=== PATIENT | female | born 1980 | race Two or more races ===

== ENCOUNTER 2018-03-30 10:39 | Outpatient (CLI) | payer MEDICAID ==
[2018-03-30 11:32] LABS: BASOPHILS % (AUTO) 0.2 %; EOSINOPHILS # (AUTO) 0.1 10^3/uL (0.0-0.7); EOSINOPHILS % (AUTO) 1.4 %; HGB - HEMOGLOBIN 11.4 g/dL (12.0-16.0); LYMPHOCYTES # (AUTO) 2.1 10^3/uL (1.5-3.5); LYMPHOCYTES % (AUTO) 26.4 %; MEAN CORPUSCULAR HEMOGLOBIN 29.5 pg (27.0-31.0); MEAN CORPUSCULAR HGB CONC 34.1 g/dL (32.0-36.0); MEAN CORPUSCULAR VOLUME 86.6 fL (81.0-99.0); MEAN PLATELET VOLUME 8.6 fL (7.9-10.8); MONOCYTES # (AUTO) 0.5 10^3/uL (0.0-1.0); MONOCYTES % (AUTO) 6.2 %; NEUTROPHILS # (AUTO) 5.1 10^3/uL (1.5-6.6); NEUTROPHILS % (AUTO) 65.8 %; PLT - PLATELET COUNT 297 10^3/uL (130-450); RED BLOOD COUNT 3.87 10^6/uL (4.20-5.40); RED CELL DISTRIBUTION WIDTH 13.7 % (12.0-15.0); WHITE BLOOD COUNT 7.8 x10^3/uL (4.8-10.8)
[2018-03-30 11:43] LABS: BILIRUBIN,URINE NEGATIVE (NEGATIVE); GLUCOSE, URINE (UA) NEGATIVE (NEGATIVE); KETONES,URINE (UA) NEGATIVE (NEGATIVE); LEUKOCYTE ESTERASE, URINE NEGATIVE (NEGATIVE); NITRITE,URINE NEGATIVE (NEGATIVE); OCCULT BLOOD,URINE TRACE-INTA (NEGATIVE); PH,URINE 6.5 PH (5.0-7.5); PROTEIN,URINE NEGATIVE (NEGATIVE); UROBILINOGEN,URINE 0.2 (NORMAL) E.U./dL (NORMAL)
[2018-03-30 11:45] LABS: CLARITY,URINE CLEAR (CLEAR)
[2018-03-30 12:14] LABS: BACTERIA,URINE Rare /HPF (None Seen); RBC,URINE 0-5 /HPF (0-5); SQUAMOUS EPITHELIAL CELL,UR RARE Squamous (<= Few)
[2018-03-31 11:36] LABS: HEPATITIS B SURFACE ANTIGEN NON-REACTIVE (NON-REACTIVE); HEPATITIS C ANTIBODY NON-REACTIVE (NON-REACTIVE)
[2018-03-31 16:22] LABS: HIV AG/AB 4TH GEN NON-REACTIVE (NON-REACTIVE)
== END 2018-03-30 10:40 | disposition home or self-care (01) ==
LOC: LAB 10:39
PROVIDERS: ATTEND Obstetrics & Gynecology
DX: Z36.9 Encounter for antenatal screening, unspecified (principal); O09.511 Supervision of elderly primigravida, first trimester
CPT/HCPCS: 36415; 81001; 81599; 85025; 86592; 86762; 86803; 86850; 86900; 86901; 87340; 87389

== ENCOUNTER 2018-04-11 15:36 | Outpatient (CLI) | payer MEDICAID | END 2018-04-11 15:37 | disposition home or self-care (01) | LOC: LAB 15:36 | PROVIDERS: ATTEND Obstetrics & Gynecology | DX: Z13.79 Encounter for other screening for genetic and chromosomal anomalies (principal) | CPT/HCPCS: 36415; 81599; 82105; 82677; 84702; 86336 ==

== ENCOUNTER 2018-04-22 08:14 | Outpatient (CLI) | payer MEDICAID ==
--- NOTE | 2018-04-24 09:20 | Ultrasound Report ---
Reason: ENCTR FOR SCREENING, UNSPECIFIED Procedure Date: 04/22/2018 Accession Number: [id number] Procedure: US - OB First Trimester CPT Code: FULL RESULT: EXAM: LIMITED OBSTETRICAL ULTRASOUND, EARLY EXAM DATE: 04/22/2018 09:27 AM. CLINICAL HISTORY: Encounter for screening, unspecified. LMP: 12/24/2017. COMPARISONS: None. TECHNIQUE: Transabdominal ultrasound examination with multiple sales representative printing static image documentation. CLINICAL DATES: EGA 17 weeks 0 days with JOEL 09/30/2018 based on last menstrual period. ASSESSMENT: Normal movement of a live single intrauterine gestation in variable presentation. Cardiac activity: 146 beats per minute. Amniotic fluid: MVP 2.63 cm, subjectively normal. Early placenta: The placenta is posterior, no evidence of previa. Other: No perigestational fluid collection demonstrated. MATERNAL STRUCTURES: Uterus: Anteverted. Unremarkable. Cervix: Closed, 4.9 cm. The adnexa are not well seen. Free Fluid: None. BIOMETRY Bi-Parietal Diameter (BPD): 3.5 cm, 16 weeks 5 days Head Circumference (HC): 13 cm, 16 weeks 4 days Abdominal Circumference (AC): 11.6 cm, 17 weeks 2 days Femur Length (FL): 2.1 cm, 16 weeks 2 days Estimated Weight: 173 g, which corresponds to the 50th percentile of a 16 week 5 day . ANATOMY Within the limits of early second trimester ultrasound, no anatomic abnormality is detected. The profile/nasal bone, visualized intracranial structures, nuchal region, anterior abdominal wall, cord insert region, stomach, and bladder are visualized and appear normal for gestational age. Cardiac situs is normal. Both upper and lower extremities are visualized. IMPRESSION: 1. Single viable intrauterine at EGA 16 weeks 5 days with JOEL 10/02/2018 based on estimated weight by [place], which is concordant with clinical dates. 2. Assigned dating is JOEL 16 weeks 5 days based on current ultrasound. RADIA
== END 2018-04-22 08:15 | disposition home or self-care (01) ==
LOC: DI 08:14
PROVIDERS: ATTEND Obstetrics & Gynecology
DX: Z36.9 Encounter for antenatal screening, unspecified (principal); Z3A.16 16 weeks gestation of pregnancy
CPT/HCPCS: 76801

== ENCOUNTER 2018-06-02 07:37 | Outpatient (CLI) | payer MEDICAID ==
--- NOTE | 2018-06-02 12:43 | Ultrasound Report ---
Reason: ENCOUNTER FOR SCREENING,UNSPECIFIED Procedure Date: 06/02/2018 Accession Number: [id number] / [id number] Procedure: US - OB Detailed Eval CPT Code: FULL RESULT: EXAM: COMPLETE OBSTETRICAL ULTRASOUND EXAM DATE: 06/02/2018 09:29 AM. CLINICAL HISTORY: anatomic survey. COMPARISON: None. TECHNIQUE: Real-time sonographic evaluation of the fetus performed by the watch and clock maker and repairer. Multiple customer support representative static images were saved for review. Additional transvaginal imaging to more accurately evaluate cervical length/placental position/etc. DATING: Established EGA 22 weeks 5 days with JOEL 09/30 based on first ultrasound. EGA 22 weeks 3 days with JOEL 10/02/2018 based on provider statement. EGA 23 weeks 0 days with JOEL 09/28/2018 based on the current ultrasound. GENERAL EVALUATION Renee . Cardiac activity: 156 bpm. movement: Visualized. Presentation: Variable Placenta: Posterior frontal position. No evidence for previa. Umbilical cord: 3 vessel cord. Central placental cord origin. Amniotic fluid: Subjectively normal. MVP 5.4 cm. ALEXSANDER 14.9 BIOMETRY Bi-Parietal Diameter (BPD): 5.8 cm, 23 weeks 5 days Head Circumference (HC): 20.8 cm, 22 weeks 6 days Abdominal Circumference (AC): 18.3 cm, 23 weeks 0 days Femur Length (FL): 4.0 cm, 22 weeks 5 days Estimated Weight: 554 g, 44th LMP percentile 80 ANATOMY The profile, face/nose/lips, spine, 4 chamber heart and left outflow tract, stomach, abdominal wall and cord insertion, diaphragm, kidneys, bladder, and extremities were visualized and demonstrate no abnormality. Right ventricular outflow tract is not demonstrated on this exam. There is questionable ventriculomegaly. The left ventricle measures up to 1.3 cm. MATERNAL STRUCTURES Uterus: Unremarkable. Cervix: Long and closed. Transabdominal length 4.8 cm. Right ovary/adnexa: Unremarkable. Left ovary/adnexa: Unremarkable. Free fluid: None. IMPRESSION: 1. Renee live intrauterine with gestational age 22 weeks 3 days based on referring provider data. 2. Estimated weight is within expected limits for assigned dating. 3. Right ventricular outflow tract is not evaluated. There is questionable ventriculomegaly with the left ventricle measuring 1.3 cm. Recommend maternal medicine consultation. RADIA
== END 2018-06-02 07:38 | disposition home or self-care (01) ==
LOC: DI 07:37
PROVIDERS: ATTEND Obstetrics & Gynecology
DX: Z36.9 Encounter for antenatal screening, unspecified (principal); Z3A.22 22 weeks gestation of pregnancy
CPT/HCPCS: 76811

== ENCOUNTER 2018-07-11 08:00 | Outpatient (CLI) | payer MEDICAID ==
[2018-07-11 19:04] LABS: HGB - HEMOGLOBIN 11.5 g/dL (12.0-16.0); MEAN CORPUSCULAR HEMOGLOBIN 29.9 pg (27.0-31.0); MEAN CORPUSCULAR HGB CONC 32.6 g/dL (32.0-36.0); MEAN CORPUSCULAR VOLUME 91.8 fL (81.0-99.0); MEAN PLATELET VOLUME 9.8 fL (7.9-10.8); RED BLOOD COUNT 3.83 10^6/uL (4.20-5.40); RED CELL DISTRIBUTION WIDTH 14.1 % (12.0-15.0)
== END 2018-07-11 23:59 | disposition home or self-care (01) ==
LOC: LAB.N 08:00
PROVIDERS: ATTEND Obstetrics & Gynecology
DX: Z36.2 Encounter for other antenatal screening follow-up (principal)
CPT/HCPCS: 36415; 82950; 85027; 86850

== ENCOUNTER 2018-09-19 16:25 | Outpatient (CLI) | payer MEDICAID ==
[2018-09-19 16:58] LABS: ALBUMIN 2.8 g/dL (3.2-5.5); ALBUMIN/GLOBULIN RATIO 0.9 (1.0-2.2); BILIRUBIN,TOTAL 0.2 mg/dL (0.2-1.0); CALCIUM 8.7 mg/dL (8.5-10.3); CREATININE 0.6 mg/dL (0.4-1.0)
[2018-09-19 17:11] LABS: CREATININE,URINE 82.6 mg/dL; PROTEIN/CREATININE RATIO,URINE 0.1 (<=0.2)
[2018-09-22 12:06] LABS: CHENODEOXYCHOLIC ACID <0.5 umol/L (< OR = 3.1); CHOLIC ACID <0.5 umol/L (< OR = 1.8); DEOXYCHOLIC ACID <0.5 umol/L (< OR = 2.4)
== END 2018-09-19 16:26 | disposition home or self-care (01) ==
LOC: LAB 16:25
PROVIDERS: ATTEND Obstetrics & Gynecology
DX: Z33.1 Pregnant state, incidental (principal)
CPT/HCPCS: 36415; 80053; 82542; 82570; 84156

== ENCOUNTER 2018-09-20 16:13 | Outpatient (CLI) | payer MEDICAID | END 2018-09-20 23:59 | disposition home or self-care (01) | LOC: LAB.R 16:13 | PROVIDERS: ATTEND Obstetrics & Gynecology | DX: Z33.1 Pregnant state, incidental (principal) | CPT/HCPCS: 87491; 87591; 87797 ==

== ENCOUNTER 2018-09-25 05:57 | Inpatient (IN) | payer MEDICAID ==
[2018-09-25] MEDS ORDERED: LACTATED RINGERS 1,000 ML IV ONE (06:18)
[2018-09-25] MEDS ORDERED: SODIUM CHLORIDE FLUSH 0.9% 10 ML SYRINGE ONE (06:18)
[2018-09-25] MEDS ORDERED: OXYTOCIN/SODIUM CHLORIDE 500 ML IV ONE (06:25)
[2018-09-25] MEDS ORDERED: SODIUM CHLORIDE FLUSH 0.9% 10 ML SYRINGE IVP PRN (06:26)
[2018-09-25] MEDS: LACTATED RINGERS 1,000 ML IV SCH ×2 (06:33→08:20)
[2018-09-25 06:49] LABS: BASOPHILS % (AUTO) 0.6 %; EOSINOPHILS # (AUTO) 0.1 10^3/uL (0.0-0.7); EOSINOPHILS % (AUTO) 1.5 %; HGB - HEMOGLOBIN 12.4 g/dL (12.0-16.0); LYMPHOCYTES # (AUTO) 2.1 10^3/uL (1.5-3.5); LYMPHOCYTES % (AUTO) 27.1 %; MEAN CORPUSCULAR HEMOGLOBIN 30.4 pg (27.0-31.0); MEAN CORPUSCULAR HGB CONC 34.2 g/dL (32.0-36.0); MEAN PLATELET VOLUME 9.5 fL (7.9-10.8); MONOCYTES # (AUTO) 0.6 10^3/uL (0.0-1.0); MONOCYTES % (AUTO) 7.5 %; NEUTROPHILS # (AUTO) 4.9 10^3/uL (1.5-6.6); NEUTROPHILS % (AUTO) 63.3 %; PLT - PLATELET COUNT 240 10^3/uL (130-450); RED BLOOD COUNT 4.07 10^6/uL (4.20-5.40); RED CELL DISTRIBUTION WIDTH 14.5 % (12.0-15.0); WHITE BLOOD COUNT 7.7 x10^3/uL (4.8-10.8)
--- NOTE | 2018-09-25 07:11 | HISTORY & PHYSICAL EXAMINATION ---
Chief Complaint - Chief Complaint Chief Complaint: contractions History of Present Illness - History of Present Illness HPI Comment/Other: Contractions since last hs. Strong and regular. Scant VB. No LOF. Good FM ROS: no URI sx, not feeling ill PMH: jpsoriasis PSH: neg Allergies: NKDA Meds: PNV SH: no t/e/d OB: , last 14y ago, prior 2 births were uncomplicated G3: JOEL 09/30/18 by LMP c/w 11w US. Advanced maternal age normal NIPT and quad screen. O: AVSS Alert, smiling between UC, NAD Abd soft, nt/nd EFW 7.25# grace Vertex grace SVE by RN 7cm vertex Category 1 NST Dooms 2 UC/10min A/P: 38yo at 39w3d with active spontaneous labor, vertex, GBS neg, EFW 7.24#, cat 1 NST --Anticipate --Epidural per pt request --: Rh +, rubella immune. Will ask about Tdap, flu vax, and varicella status. NEEDS COLPO PP Conclusion/Plan - Lab Results Fish Bones: 09/25/18 06:35
[2018-09-25] MEDS ORDERED: fent/BUPIV 2 MCG/0.125% 250 ML EP ONE (07:20)
[2018-09-25] MEDS ORDERED: fent/BUPIV 2 MCG/0.125% 250 ML EP PRN (08:14)
[2018-09-25] MEDS ORDERED: NALBUPHINE 10 MG/ML AMP IVP PRN (08:14)
[2018-09-25] MEDS ORDERED: diphenhydrAMINE INJ 50 MG/ML VIAL IVP PRN (08:14)
[2018-09-25] MEDS ORDERED: ePHEDrine 50 MG/ML VIAL IVP PRN (08:14)
[2018-09-25] MEDS ORDERED: NALOXONE 0.4 MG/ML VIAL IVP PRN (08:14)
[2018-09-25] MEDS ORDERED: LACTATED RINGERS 500 ML IV ONE (08:14)
[2018-09-25] MEDS ORDERED: METOCLOPRAMIDE 10 MG/2 ML VIAL IVP PRN (08:14)
[2018-09-25] MEDS ORDERED: ONDANSETRON 4 MG/2 ML VIAL IVP PRN (08:14)
--- NOTE | 2018-09-25 08:17 | PROVIDER PROGRESS NOTE ---
Subjective - Subjective Subjective: Feeling better with epidural but still having painful contractions Variable now minimal post epidural but no decels. AROM for clear fluid after pt consent. Had some LOF earlier during admission but had a large taut forebag. Clear and copious. 9/100/-2 Anticipate . Watch NST to ensure moderate LTV soon as hemodynamics adjust to epidural. Objective - Lab Results Fish Bones: 09/25/18 06:35 Other Labs: Lab Results x24hrs 09/25/18 Range/Units 06:35 WBC 7.7 (4.8-10.8) x10^3/uL RBC 4.07 L (4.20-5.40) 10^6/uL Hgb 12.4 (12.0-16.0) g/dL Hct 36.2 L (37.0-47.0) % MCV 89.0 (81.0-99.0) fL MCH 30.4 (27.0-31.0) pg MCHC 34.2 (32.0-36.0) g/dL RDW 14.5 (12.0-15.0) % Plt Count 240 (130-450) 10^3/uL MPV 9.5 (7.9-10.8) fL Neut # (Auto) 4.9 (1.5-6.6) 10^3/uL Lymph # (Auto) 2.1 (1.5-3.5) 10^3/uL [place] # (Auto) 0.6 (0.0-1.0) 10^3/uL Eos # (Auto) 0.1 (0.0-0.7) 10^3/uL Baso # (Auto) 0.0 (0.0-0.1) 10^3/uL Absolute Nucleated RBC 0.00 x10^3/uL Nucleated RBC % 0.1 /100WBC
--- NOTE | 2018-09-25 08:19 | ANESTHESIA ---
Pre-Anesthesia VS, & Labs - Diagnosis active labor - Procedure labor epidural - NPO Other (clears from now until delivery) - Is Patient ?: Yes - Lab Results Current Lab Results: Laboratory Tests 09/25/18 06:35: WBC 7.7, RBC 4.07 L, Hgb 12.4, Hct 36.2 L, MCV 89.0, MCH 30.4, MCHC 34.2, RDW 14.5, Plt Count 240, MPV 9.5, Neut # (Auto) 4.9, Lymph # (Auto) 2.1, Door # (Auto) 0.6, Eos # (Auto) 0.1, Baso # (Auto) 0.0, Absolute Nucleated RBC 0.00, Nucleated RBC % 0.1 Fish Bones: 09/25/18 06:35 Home Medications and Allergies Active Medications Diphenhydramine HCl (Benadryl Inj) 12.5 - 25 mg IVP Q6HR PRN PRN Reason: ITCHING Ephedrine Sulfate () 5 mg IVP Q5M PRN PRN Reason: For SBP<100;give until SBP>100 Lactated Ringer's (Lr) 1,000 mls @ 150 mls/hr IV .Q6H40M CELSO Last Admin: 09/25/18 06:33 Dose: 999 mls/hr Fentanyl/Bupivacaine/Sodium Chlor (Fent/Bupiv 2 Mcg/0.125%) 250 mls @ 0 mls/hr EP .Q0M PRN; Protocol PRN Reason: PAIN Lactated Ringer's (Lr) 500 mls @ 999 mls/hr IV ONCE ONE Stop: 09/25/18 08:44 Metoclopramide HCl (Reglan Inj) 10 mg IVP Q6HR PRN PRN Reason: Nausea / Vomiting Nalbuphine HCl (Nubain) 2.5 - 5 mg IVP Q4H PRN PRN Reason: ITCHING Naloxone HCl (Narcan) 0.1 mg IVP Q2M PRN PRN Reason: RR<8 Ondansetron HCl (Zofran Inj) 4 mg IVP Q6HR PRN PRN Reason: Nausea / Vomiting Sodium Chloride (Normal Saline Flush 0.9%) 10 ml IVP PRN PRN PRN Reason: NEEDED PER PROVIDER ORDERS Sodium Chloride (Normal Saline Flush 0.9%) 10 ml IVP 0100,0900,1700 CELSO Anes History & Medical History - Anesthetic History Anesthesia Complications: reports: No previous complications - Obstetrical History : 3 Parity: 2 Exam General: Alert Dental: WNL Mallampati classification: II Thyromental Distance: 4-6 cm Plan Anesthesia Type: Epidural Consent for Procedure(s) Verified and Reviewed: Yes Code Status: Attempt Resuscitation ASA classification: 2-Mild systemic disease Is this case an emergency?: No
[2018-09-25] MEDS ORDERED: SODIUM CHLORIDE FLUSH 0.9% 10 ML SYRINGE IVP SCH (09:00)
[2018-09-25] MEDS ORDERED: MAGNESIUM HYDROXIDE 2,400 MG/30 ML UDC PO PRN (12:14)
[2018-09-25] MEDS ORDERED: ONDANSETRON ODT 4 MG TABLET TL PRN (12:14)
[2018-09-25] MEDS ORDERED: HYDROCORTISONE 1% CREAM 28 GM TUBE PR PRN (12:14)
[2018-09-25] MEDS ORDERED: WITCH HAZEL/GLYCERIN 1 EACH MED..PAD TOP PRN (12:14)
--- NOTE | 2018-09-25 12:21 | DELIVERY NOTE ---
Delivery Note - Infant Delivery Method Infant Delivery Method: positive: Spontaneous vaginal delivery - Presentation Presentation: positive: Vertex - Nuchal Cord Nuchal Cord: positive: None - Anesthetic Anesthetic Type: - Amniotic Fluid Description Amniotic Fluid Description: positive: Clear - Episiotomy Type Episiotomy Type: positive: None - Laceration Laceration: positive: 2nd degree (Verified by rectal exam. Dorsal 1/2 of the perineum was involved superfically all the way down to the anus. Closed with interrupted sutures.) - Suture Suture Type: positive: Vicryl Suture Size: positive: 2-0, 4-0 - Delivery Outcome Delivery Outcome: positive: Livebirth - [place] : positive: Placed in direct skin contact with mother, Stimulated, Warmed, [place] used (skin to skin) [place] sex: positive: Female - Cord Cord: positive: 3 vessels - Placenta Placenta: positive: Intact (normal), Spontaneous - Estimated Blood Loss Estimated Blood Loss (in cc): 200 - Post Delivery Events Post Delivery Events: positive: No post delivery events - Delivery Comments (Free Text/Narrative) Delivery Comments (Free Text/Narrative): Fundus firm, 2cm below umbilicus. Mom and baby bonding well. Anticipate laceration pain, start stool softeners now.
[2018-09-25] MEDS ORDERED: OXYTOCIN/SODIUM CHLORIDE 500 ML IV SCH (13:00)
[2018-09-25] MEDS ORDERED: LACTATED RINGERS 1,000 ML IV SCH (13:00)
[2018-09-25] MEDS ORDERED: SIMETHICONE CHEW 80 MG TABLET PO SCH (14:00)
[2018-09-25] MEDS: ACETAMINOPHEN 500 MG TABLET PO SCH ×2 (17:19→21:49)
[2018-09-25] MEDS: DOCUSATE SODIUM 100 MG CAPSULE PO SCH ×2 (17:21→21:50)
[2018-09-25] MEDS: IBUPROFEN 600 MG TABLET PO SCH (17:21)
[2018-09-26] MEDS: IBUPROFEN 600 MG TABLET PO SCH ×2 (01:32→18:10)
[2018-09-26 06:23] LABS: BASOPHILS % (AUTO) 0.3 %; EOSINOPHILS # (AUTO) 0.1 10^3/uL (0.0-0.7); HGB - HEMOGLOBIN 10.2 g/dL (12.0-16.0); LYMPHOCYTES # (AUTO) 2.1 10^3/uL (1.5-3.5); LYMPHOCYTES % (AUTO) 16.1 %; MEAN CORPUSCULAR HEMOGLOBIN 29.3 pg (27.0-31.0); MEAN CORPUSCULAR HGB CONC 32.4 g/dL (32.0-36.0); MEAN CORPUSCULAR VOLUME 90.2 fL (81.0-99.0); MEAN PLATELET VOLUME 9.3 fL (7.9-10.8); MONOCYTES # (AUTO) 0.8 10^3/uL (0.0-1.0); MONOCYTES % (AUTO) 6.4 %; NEUTROPHILS # (AUTO) 9.8 10^3/uL (1.5-6.6); NEUTROPHILS % (AUTO) 76.2 %; PLT - PLATELET COUNT 197 10^3/uL (130-450); RED BLOOD COUNT 3.49 10^6/uL (4.20-5.40); RED CELL DISTRIBUTION WIDTH 14.6 % (12.0-15.0); WHITE BLOOD COUNT 12.9 x10^3/uL (4.8-10.8)
[2018-09-26] MEDS: DOCUSATE SODIUM 100 MG CAPSULE PO SCH ×2 (08:34→20:41)
--- NOTE | 2018-09-26 12:25 | PROVIDER PROGRESS NOTE ---
Subjective - Subjective Subjective: Feeling well today, some soreness and pressure on the vulva with ambulation. Walking, eating, , urinating OK. Bleeding normal amount. Happy. AVSS Alert, smiling, with good latch, NAD Abd soft, nt/nd Fundus firm, NT, 3cm below U LE without C/C/E A/P: P3 PPD #1 s/p at term, doing very well. Will review clinic records to check Tdap and flu vax status. Anticipate routine care with d/c tomorrow. Objective - Vital Signs/Intake & Output Vital Signs: Vital Signs x48h Temp Pulse Resp BP BP Pulse Ox 09/26/18 12:10 98.1 F 70 16 92/50 L 96 09/26/18 08:06 98.2 F 74 16 94/54 L 96 09/26/18 07:30 97.5 F L 69 18 80/48 L 97 09/26/18 04:36 98.4 F 72 18 92/52 L 96 Intake & Output: Intake & Output 09/23/18 09/24/18 09/25/18 09/26/18 23:59 23:59 23:59 23:59 Intake Total 2500 Output Total 1100 Balance 1400 - Lab Results Fish Bones: 09/26/18 06:20 Other Labs: Lab Results x24hrs 09/26/18 Range/Units 06:20 WBC 12.9 H (4.8-10.8) x10^3/uL RBC 3.49 L (4.20-5.40) 10^6/uL Hgb 10.2 L (12.0-16.0) g/dL Hct 31.5 L (37.0-47.0) % MCV 90.2 (81.0-99.0) fL MCH 29.3 (27.0-31.0) pg MCHC 32.4 (32.0-36.0) g/dL RDW 14.6 (12.0-15.0) % Plt Count 197 (130-450) 10^3/uL MPV 9.3 (7.9-10.8) fL Neut # (Auto) 9.8 H (1.5-6.6) 10^3/uL Lymph # (Auto) 2.1 (1.5-3.5) 10^3/uL [place] # (Auto) 0.8 (0.0-1.0) 10^3/uL Eos # (Auto) 0.1 (0.0-0.7) 10^3/uL Baso # (Auto) 0.0 (0.0-0.1) 10^3/uL Absolute Nucleated RBC 0.01 x10^3/uL Nucleated RBC % 0.0 /100WBC
[2018-09-27] MEDS: IBUPROFEN 600 MG TABLET PO SCH (06:39)
[2018-09-27] MEDS: DOCUSATE SODIUM 100 MG CAPSULE PO SCH (09:07)
--- NOTE | 2018-09-27 10:09 | PROVIDER PROGRESS NOTE ---
Subjective - Subjective Subjective: Doing well, meeting discharge criteria. Discharge home, see d/c summary. Objective - Vital Signs/Intake & Output Vital Signs: Vital Signs x48h Temp Pulse Resp BP Pulse Ox 09/27/18 07:34 98.1 F 78 16 96/54 L 99 Intake & Output: Intake & Output 09/24/18 09/25/18 09/26/18 09/27/18 23:59 23:59 23:59 23:59 Intake Total 2500 Output Total 1100 Balance 1400 - Lab Results Fish Bones: 09/26/18 06:20
--- NOTE | 2018-09-27 11:12 | DISCHARGE SUMMARY ---
Physician: Erin Patterson MD DATE OF ADMISSION: 09/25/2018 DATE OF DISCHARGE: 09/27/2018 ADMISSION DIAGNOSIS: Active spontaneous labor at term. DISCHARGE DIAGNOSIS: Status post spontaneous vaginal delivery at term. OPERATIONS AND PROCEDURES: On 09/25/2018, spontaneous vaginal delivery, uncomplicated. HOSPITAL COURSE: Patient was admitted in active, spontaneous labor. She requested an epidural for h er pain control. Her heart tracing was normal throughout. She was group B strep negative. Sh e progressed to complete and pushed effectively to deliver without complications. She did have a sec ond-degree perineal laceration that required repair. Patient's course was unremarkable. By day #2, she was eating, ambulating, kal stfeeding and urinating without difficulty. She was experiencing a normal amount of bleeding. Her p ain in her abdomen was minimal. Her perineal pain was 2-3/10, this was not increasing. Her mood was good. DISCHARGE EXAMINATION GENERAL: The patient was afebrile with normal vital signs. Alert, smiling, in no apparent distress. ABDOMEN: Soft, nontender, nondistended. Fundus firm, nontender and 3 cm below the umbilicus. EXTREMITIES: No lower extremity edema present. LABORATORY DATA: hematocrit was 31.5. DISCHARGE CONDITION: Good. DISPOSITION: Home. INSTRUCTIONS: Pelvic rest, routine instructions. FOLLOWUP: One week in clinic. TD: 09/27/2018 10:19
[2018-09-27 11:24] VITALS: BP 100/54
--- NOTE | 2018-09-27 12:27 | Discharge Plan ---
Discharge Plan Disposition: 01 Home, Self Care Condition: Good Diet: Regular Shower Restrictions: No Driving Restrictions: No Additional Instructions or Follow Up instructions: instructions No Smoking: If you smoke, Please STOP! Call for help. Follow-up with: Erin Patterson MD [Provider Admit Priv/Credential] - 1 Week
--- NOTE | 2018-09-27 16:06 | Labor Flowsheet ---
Labor Flowsheet Datetime Report Generated by CPN: 09/27/2018 16:06 Datetime: 09/27/2018 00:52 VITAL SIGNS NBP Sys/Jonna/Mean (mmHg): 94 : 54 : 63 Pulse: 77 LaborFlag: Labor Datetime: 09/27/2018 00:48 SpO2 (%): 99 Datetime: 09/25/2018 13:00 Epidural Procedure Other: Cath Removed; Cath Intact Datetime: 09/25/2018 12:30 Vital Sign Comments: Pulse not accurate. Pulse ox off. Datetime: 09/25/2018 11:47 Stage 2 Comments: 2nd degree perineal lac to anus. No 4th degree Datetime: 09/25/2018 11:31 Frequency (min): 3 Quality: Strong Pattern: Normal: <= 5 Contractions in 10 Minutes ASSESSMENT A Monitor Mode: Telemetry Variability: Moderate 6-25 bpm Accelerations: None Decelerations: Early Category: Category II PATIENT CARE Oxygen Amount (LPM): 10 Oxygen Method: Face Mask Datetime: 09/25/2018 11:26 FHR Baseline Rate : 120 STAGE 2 Pushing: Urge to Push Pushing Position: Pushing with Contractions Pushing Progress: Descent with Pushing Datetime: 09/25/2018 11:21 Duration (sec): >60 Resting Tone (Palpate): Relaxed Datetime: 09/25/2018 11:15 FHR Baseline Changes: No Baseline Change Datetime: 09/25/2018 11:06 VAGINAL EXAM Dilatation (cm): 10.0 Station: 2 Exam by: Martason Datetime: 09/25/2018 11:04 Communication Comments: MD here for delivery Datetime: 09/25/2018 10:46 UTERINE ACTIVITY Monitor Mode: External Datetime: 09/25/2018 10:30 Patient Care Comments: froggy leg Datetime: 09/25/2018 10:27 Patient Position/Activity: High Fowlers Datetime: 09/25/2018 10:15 PAIN Pain Scale: 4 Pain Presence: Intermittent Pain Type: Contraction Datetime: 09/25/2018 10:02 Temperature (C): 37.1 Datetime: 09/25/2018 10:01 Monitor Interventions for UA: [place] Station Adjusted Datetime: 09/25/2018 09:28 I/O Interventions: Pizano Cath Inserted Datetime: 09/25/2018 09:04 Provider Reviewed Strip: Yes COMMUNICATION Communication: Provider at Bedside Notification Reason: Other Datetime: 09/25/2018 09:00 Respirations: 18 Nausea/Vomiting: Denies Datetime: 09/25/2018 08:30 MEDICATIONS Antiemetics/Antacids: Zofran (mg) @ 4 Datetime: 09/25/2018 08:27 Anesthesia Interventions Other: Ephedrine Anesthesia Comments: 10mg Datetime: 09/25/2018 08:13 Membrane Status: Ruptured Membranes Rupture Method: Artificial Amniotic Fluid Color: Clear Amniotic Fluid Amount: Moderate Amniotic Fluid Odor: Normal Datetime: 09/25/2018 07:49 Pain Location: Abdomen Pain Goal: 0 Pain Relief Measures: Epidural Given Pain Coping: Breathing Through Contractions Pain Assessment Comments: Pt states pain is getting better since epidural MATERNAL ASSESSMENT Level of Consciousness: Fully Conscious Headache: Denies Breath Sounds, Left: Clear and Equal Breath Sounds, Right: Clear and Equal RUQ Epigastric Pain: Denies Comfort Measures: Breathing/Relaxation; Coaching; Family Support Datetime: 09/25/2018 07:47 Epidural Procedure: Completed Datetime: 09/25/2018 07:37 PROCEDURE TIME OUT Procedure Verify: Correct Patient Identity; Correct Side and Site are Marked; Accurate Procedure Co nsent Form; Agreement on Procedure to be Done; Correct Patient Position; Relevant Images and Results are Properly Labeled and Displayed; Addressed Need to Administer Antibiotics or Fluids for Irrigation ; Safety Precautions Based on Patient History or Medication Use ANESTHESIA Anesthesia Plans: Epidural Epidural Positioning: Sitting Datetime: 09/25/2018 07:17 Stage of : Labor Datetime: 09/25/2018 07:10 Monitor Interventions for FHR: Ultrasound Adjusted Datetime: 09/25/2018 07:09 Provider Notified (Name): Sunshine Goldman
== END 2018-09-27 14:30 | disposition home or self-care (01) | DRG 807 ==
LOC: WFO 05:57 → FBP 05:58 → WFO 06:04 → FBP 06:05
PROVIDERS: ADMIT Obstetrics & Gynecology; ATTEND Obstetrics & Gynecology
PROC: 10E0XZZ Delivery of Products of Conception, External Approach (ICD-10-PCS; principal; 2018-09-25)
PROC: 0KQM0ZZ Repair Perineum Muscle, Open Approach (ICD-10-PCS; 2018-09-25)
DX: O70.1 Second degree perineal laceration during delivery (principal); Z37.0 Single live birth; Z3A.39 39 weeks gestation of pregnancy
CPT/HCPCS: 36415; 85025; 99213; A9270; J7120

== ENCOUNTER 2018-11-17 11:15 | Outpatient (CLI) | payer MEDICAID ==
--- NOTE | 2018-11-17 13:36 | XRAY Report ---
Reason: LUMBAGO Procedure Date: 11/17/2018 Accession Number: [id number] / [id number] Procedure: XRN - Lumbar Spine 2 View CPT Code: FULL RESULT: EXAM: LUMBOSACRAL SPINE RADIOGRAPHY EXAM DATE: 11/17/2018 11:33 AM. CLINICAL HISTORY: Lumbago. COMPARISONS: None. TECHNIQUE: 3 views. FINDINGS: Alignment: Levoconvex scoliosis centered about L3, mild. No significant listhesis. Bones: Five [id number] lumbar vertebral bodies are present. No fractures or bone lesions. Disks: Normal. Disk heights are maintained. Facets: Moderate facet arthropathy predominantly at L5 in the setting of a pars defect. Sacroiliac Joints: Unremarkable. Soft Tissues: Normal. The visualized bowel gas pattern is normal. IMPRESSION: Mild scoliosis and facet arthropathy with pars defect at L5 as described. RADIA
== END 2018-11-17 11:16 | disposition home or self-care (01) ==
LOC: DI.N 11:15
PROVIDERS: ATTEND Nurse Practitioner
DX: M47.9 Spondylosis, unspecified (principal); M43.06 Spondylolysis, lumbar region; M41.86 Other forms of scoliosis, lumbar region
CPT/HCPCS: 72100